=== PATIENT | female | born 2000 | race Caucasian/White ===

== ENCOUNTER 2019-09-18 19:48 | Emergency (ER) | payer BC ==
[~2019-09-18] VITALS: Ht 162.6 cm; Wt 76.2 kg
[2019-09-18 19:56] VITALS: Ht 162.6 cm; Wt 76.2 kg
[2019-09-18 20:35] LABS: BASOPHIL % 0.6 % (0-2); PLATELET COUNT 277 x10^3mcL (130-400)
[2019-09-18 20:51] LABS: CALCIUM 9.3 mg/dL (8.5-10.1); CARBON DIOXIDE 25.7 mmol/L (21-32); CHLORIDE SERUM 104 mmol/L (98-107); CREATININE SERUM 0.8 mg/dL (0.6-1.0); GFR1 > 60 mL/min; GLUCOSE SERUM 94 mg/dL (74-106); POTASSIUM SERUM 3.7 mmol/L (3.5-5.1); SODIUM SERUM 142 mmol/L (136-145)
[2019-09-18 20:56] LABS: ALBUMIN 4.1 g/dL (3.4-5.0); ALKALINE PHOSPHATASE 81 U/L (46-116); ALT/SGPT 54 U/L (14-59); AST/SGOT 19 U/L (15-37)
[2019-09-18 21:22] LABS: AMPHETAMINE QUAL UR NONE DETECTED (See below)
[2019-09-19 11:15] VITALS: BP 126/68
== END 2019-09-19 11:15 ==
LOC: ED 19:48
PROVIDERS: Emergency Medicine
DX: S50.812A Abrasion of left forearm, initial encounter (principal); F32.9 Major depressive disorder, single episode, unspecified; F29 Unspecified psychosis not due to a substance or known physiological condition; X78.1XXA Intentional self-harm by knife, initial encounter; Y93.89 Activity, other specified; Y92.89 Other specified places as the place of occurrence of the external cause; Y99.8 Other external cause status
CPT/HCPCS: 36415; G0480

== ENCOUNTER 2020-03-22 09:45 | Emergency (ER) | payer BC ==
[~2020-03-22] VITALS: Ht 152.4 cm; Wt 55.8 kg
[2020-03-22 10:01] VITALS: Ht 152.4 cm; Wt 55.8 kg
[2020-03-22 11:06] LABS: BASOPHIL % 0.4 % (0-2); PLATELET COUNT 327 x10^3mcL (130-400); RED CELL DISTRIBUTION WIDTH 14.3 % (11.5-14.5)
[2020-03-22 11:19] LABS: microscopic required? YES; urine erythrocyte NEGATIVE (NEGATIVE)
[2020-03-22 11:30] LABS: ALKALINE PHOSPHATASE 64 U/L (46-116); ALT/SGPT 24 U/L (14-59); CHLORIDE SERUM 100 mmol/L (98-107); SODIUM SERUM 135 mmol/L (136-145)
[2020-03-22 11:31] LABS: T3 TOTAL 1.13 ng/mL
[2020-03-22 11:32] LABS: FREE T4 1.13 ng/dL (0.76-1.46); FREE THYROXINE INDEX 3.3 ug/dL (1.4-4.5)
[2020-03-22 11:36] LABS: AMPHETAMINE QUAL UR NONE DETECTED (See below)
[2020-03-22 11:53] LABS: CREATININE SERUM 1.2 mg/dL (0.6-1.0); GFR1 60 mL/min; GLUCOSE SERUM 171 mg/dL (74-106)
[2020-03-22 11:54] LABS: ALBUMIN 4.4 g/dL (3.4-5.0); AST/SGOT 15 U/L (15-37); BILIRUBIN TOTAL 0.64 mg/dL (0.20-1.00); CALCIUM 9.6 mg/dL (8.5-10.1); TOTAL PROTEIN, SERUM 8.1 g/dL (6.4-8.2)
[2020-03-22 13:57] VITALS: BP 134/79
== END 2020-03-22 13:57 | disposition home or self-care (01) ==
LOC: ED 09:45
PROVIDERS: Emergency Medicine
DX: F41.9 Anxiety disorder, unspecified (principal); R00.2 Palpitations
CPT/HCPCS: 84439; G0480; J2060; J7030; Q0092